=== PATIENT | female | born 1990 | race Caucasian/White ===

== ENCOUNTER 2019-02-24 20:12 | Inpatient (IN) | payer OTHER ==
[~2019-02-24 20:12] MED LIST: Bupivacaine 0.25% HCL 30 ML VIAL ONE
[2019-02-24] MEDS ORDERED: Methylergonovine 0.2 MG/ML VIAL IM PRN (20:37)
[2019-02-24] MEDS ORDERED: Carboprost 250 MCG/ML AMP IM PRN (20:37)
[2019-02-24] MEDS ORDERED: Ondansetron PF 4 MG/2 ML Vial IVP PRN (20:37)
[2019-02-24] MEDS ORDERED: Lidocaine 1% (PF) 30 ML VIAL SC PRN (20:37)
[2019-02-24] MEDS ORDERED: Misoprostol 200 MCG TAB PR PRN (20:37)
[2019-02-24] MEDS ORDERED: hydrALAZINE 20 MG/ML VIAL SLOW IVP PRN (20:37)
[2019-02-24] MEDS ORDERED: Diphenoxylate HCl/Atropine Tablet PO PRN (20:37)
[2019-02-24] MEDS ORDERED: Promethazine HCl 25 MG/ML VIAL IM PRN (20:37)
[2019-02-24] MEDS ORDERED: Ibuprofen 800 MG TAB PO PRN (20:37)
[2019-02-24] MEDS ORDERED: NS / Oxytocin 40 units/1000ml 1,000 ML IV PRN (20:37)
[2019-02-24] MEDS ORDERED: HYDROcodone/Acetaminophen 5/325 mg Tablet PO PRN (20:37)
[2019-02-24] MEDS ORDERED: Acetaminophen 500 MG TAB PO PRN (20:37)
[2019-02-24] MEDS ORDERED: NS w/ Oxytocin 10 units 500 ML IV SCH (20:45)
[2019-02-24] MEDS ORDERED: Misoprostol 100 MCG TAB VAG SCH (21:00)
[2019-02-24] MEDS ORDERED: Penicillin G Potassium 5 MILL.UNITS in Sodium Chloride 0.9% 100 ML IVPB SCH (21:00)
[2019-02-24] MEDS: Lactated Ringer's 1,000 ML IV SCH ×2 (21:00→23:10)
[2019-02-24 21:04] LABS: Mean Corpuscular HGB CONC 32.9 g/dL (32.0-36.0); Mean Corpuscular Hemoglobin 28.3 pg (27.0-31.0); Mean Corpuscular Volume 86.1 fL (78.0-98.0); Mean Platelet Volume 10.2 fL (7.4-10.4); Platelet Count 226 thou/uL (130-400); RBC Distribution Width 12.5 % (11.5-14.5); White Blood Cell (WBC) Count 10.4 thou/uL (4.8-10.8)
[2019-02-24 21:20] LABS: ALT (SGPT) 12 U/L (8-55); AST (SGOT) 26 U/L (5-34); Albumin 3.6 g/dL (3.5-5.0); Alkaline Phosphatase 169 U/L (40-110); Anion Gap 18 mmol/L (10-20); BUN (Urea Nitrogen) 7 mg/dL (7.0-18.7); Bilirubin, Total 0.6 mg/dL (0.2-1.2); Calc. Creatinine Clearance 0 mL/min (70-130); Calcium 8.7 mg/dL (7.8-10.44); Carbon Dioxide 18 mmol/L (22-29); Chloride 106 mmol/L (98-107); Estimated GFR-MDRD Greater than 90; Globulin 2.8 g/dL (2.4-3.5); Glucose 69 mg/dL (70-105); Potassium 3.9 mmol/L (3.5-5.1); Protein, Total 6.4 g/dL (6.0-8.3); Sodium 138 mmol/L (136-145)
[2019-02-24 21:38] LABS: Syphilis Antibody Nonreactive (Nonreactive); Syphilis Antibody Index 0.04 S/CO (<1.00 Non-Reactive)
[2019-02-24] MEDS ORDERED: Fentanyl 4 mcg/Bup 0.1% Cadd 100 ML ONE (21:39)
[2019-02-24] MEDS ORDERED: Fentanyl 100 MCG/2 ML VIAL ONE (21:40)
[2019-02-24 22:16] VITALS: BMI 32.2
[2019-02-24 23:21] LABS: HBSAg Index 0.24 S/CO (0-0.99); Hep B Surf Ag Non-Reactive S/CO (NonReactive)
[2019-02-25] MEDS: Pen G 2.5 MILL.UNITS/50 ML BAG IVPB SCH ×2 (01:08→09:19)
--- NOTE | 2019-02-25 05:41 | PDOC.LDHP ---
Labor and Delivery H&P Chief complaint: scheduled induction HPI: 28yo at 37w2d by LMP here for IOL due to GHTN. No PIH sx. Current gestational age (weeks): 37 Due date: 03/15/19 Dating criteria: last menstrual period Grav: 3 Para: 2 Current complications: none Abnormal US findings: No Past Medical History: mastocytosis Current medications: pre-codie vitamins, other (amitriptyline, valtrex, singulair, gabapentin) Previous surgical history: other (knee scope, knee surgery) Allergies/Adverse Reactions: Allergies Allergy/AdvReac Type Severity Reaction Status Date / Time morphine Allergy Severe Anaphylaxis Verified 03/24/14 22:35 Social history: none - Physical Exam Vital signs reviewed and normal: yes General: NAD Heart: RRR Lungs: CTAB Abdomen: gravid Extremeties: no edema FHT: category 1 Corley contractions every: 2min - Vaginal Exam cm dilated: 10 Effacement: 100% Station: 2+ - OB Labs Blood type: A RH: positive Antibody Screen: negative HIV: negative RPR: negative HEPSAg: negative 1 hour GCT: negative GBS: positive Urine drug screen: negative Rubella: immune - Assessment L&D Assessment: medically indicated induction - Plan Plan: admit to L&D, labor augmentation if indicated, GBS antibiotic prophylaxis , informed consent obtained, anesthesia consult for pain management
--- NOTE | 2019-02-25 05:45 | PDOC.OPDEL ---
OB Operative/Delivery Note Delivery Dr/Surgeon: Hossein Assist: n/a Pre-Delivery Diagnosis: medically indicated induction (GHTN) Procedure/Post Delivery Dx: spontaneous vaginal delivery Weeks gestation: 37 Anesthesia: epidural - Findings A Sex: male - 1 min: 8 - 5 min: 9 - Additional Findings/Plan Placenta delivered: spontaneous Repaired Obstetrical Laceration: none Estimated blood loss: 50cc Compilations/Other Findings: NC x 1 reduced Post delivery plan: routine recovery
[2019-02-25] MEDS ORDERED: Bisacodyl 10 MG SUPP PR PRN (07:01)
[2019-02-25] MEDS ORDERED: Milk Of Magnesia 30 ML UDCUP PO PRN (07:01)
[2019-02-25] MEDS ORDERED: Promethazine HCl 25 MG/ML VIAL IM PRN (07:01)
[2019-02-25] MEDS ORDERED: NS / Oxytocin 40 units/1000ml 1,000 ML IV SCH (07:01)
[2019-02-25] MEDS ORDERED: Lanolin Ointment 7 GM TUBE TOP PRN (07:01)
[2019-02-25] MEDS ORDERED: Preparation H Ointment 28 GM TUBE PR PRN (07:01)
[2019-02-25] MEDS ORDERED: HYDROcodone/Acetaminophen 5/325 mg Tablet PO PRN ×2 (07:01)
[2019-02-25] MEDS ORDERED: Adacel (T-DAP) 0.5 ML SYRINGE IM ONE (07:01)
[2019-02-25] MEDS ORDERED: Ondansetron PF 4 MG/2 ML Vial IVP PRN (07:01)
[2019-02-25] MEDS ORDERED: diphenhydrAMINE 25 MG CAP PO PRN (07:01)
[2019-02-25] MEDS ORDERED: hydrALAZINE 20 MG/ML VIAL SLOW IVP PRN (07:01)
[2019-02-25] MEDS ORDERED: Benzocaine-Menthol 82.5 ML CAN TOP PRN (07:01)
[2019-02-25] MEDS: Ferrous Sulfate 325 MG TAB PO SCH ×2 (09:19→17:14)
[2019-02-25] MEDS: Ibuprofen 800 MG TAB PO SCH ×3 (09:27→22:28)
[2019-02-25] MEDS: Docusate Calcium (SURFAK) 240 MG CAP PO SCH ×2 (09:36→22:28)
[2019-02-25] MEDS: Prenatal Vitamin 1 TAB PO SCH (09:36)
[2019-02-26] MEDS: Ibuprofen 800 MG TAB PO SCH ×2 (06:28→13:24)
[2019-02-26] MEDS: Docusate Calcium (SURFAK) 240 MG CAP PO SCH (09:11)
[2019-02-26] MEDS: Ferrous Sulfate 325 MG TAB PO SCH ×2 (09:13→15:31)
[2019-02-26] MEDS: Prenatal Vitamin 1 TAB PO SCH (09:13)
--- NOTE | 2019-02-26 10:29 | PDOC.PP ---
Post Progress Note Post Day #: 1 PO intake tolerated: yes Flatus: yes Ambulation: yes Vital Signs (12 hours) Temp Pulse Resp BP Pulse Ox 02/26/19 08:13 97.9 F 83 20 125/71 97 02/26/19 04:00 98.0 F 75 129/67 Weight Weight 188 lb - Physical Examination General: NAD Respiratory: non-labored breathing Abdominal: no distention, appropriately TTP Skin: no rash Neurological: no gross focal deficits Psychiatric: normal affect Result Diagrams: 02/24/19 20:51 02/24/19 20:51 Additional Labs: Post Labs Blood Type A POSITIVE 02/24/19 20:51 Hep Bs Antigen Non-Reactive S/CO (NonReactive) 02/24/19 20:51 - Assessment/Plan PPD1 s/p TSVD at 37w 2/2 GHTN VSSAF Doing well lochia < menses Rh pos RImm Cont PP care, home tomorrow
[2019-02-26 17:33] VITALS: BP 135/85; TEMP 98.3
== END 2019-02-26 19:03 | disposition home or self-care (01) | DRG 807 ==
LOC: L&D 20:12 → 3SW 02-25 09:01
PROVIDERS: ADMIT Student in an Organized Health Care Education/Training Program; ATTEND Student in an Organized Health Care Education/Training Program
PROC: 10E0XZZ Delivery of Products of Conception, External Approach (ICD-10-PCS; principal; 2019-02-24)
PROC: 3E033VJ Introduction of Other Hormone into Peripheral Vein, Percutaneous Approach (ICD-10-PCS; 2019-02-24)
DX: O13.4 Gestational [pregnancy-induced] hypertension without significant proteinuria, complicating childbirth (principal); Z37.0 Single live birth; Z3A.37 37 weeks gestation of pregnancy; O99.824 Streptococcus B carrier state complicating childbirth; O69.81X0 Labor and delivery complicated by cord around neck, without compression, not applicable or unspecified
CPT/HCPCS: 36415; 51702; 80053; 81003; 85027; 86780; 86850; 86900; 86901; 87077; 87081; 87340; J2540; J2590; J3010; J3490; S0020

== ENCOUNTER 2019-12-28 14:27 | Outpatient (CLI) | payer OTHER ==
--- NOTE | 2019-12-28 15:21 | MMO ---
Bilateral MAMMO Bilat Diag DDI+SOPHIE. CLINICAL HISTORY: Patient is 29 years old and is seen for diagnostic exam and pain in the right breast. The patient has the following family history of breast cancer: 1aternal grandmother; maternal aunt, GREAT and paternal grandmother, GREAT. The patient has no personal history of cancer. VIEWS: The views performed were: bilateral craniocaudal with tomosynthesis; bilateral mediolateral oblique with tomosynthesis; and bilateral mediolateral with tomosynthesis. FILMS COMPARED: The present examination has been compared to a prior imaging study performed at [facility] on 12/28/2019. This study has been interpreted with the assistance of computer-aided detection. MAMMOGRAM FINDINGS: The breasts are heterogeneously dense, which could obscure a lesion on mammography. There are no suspicious masses, suspicious calcifications, or new areas of architectural distortion. IMPRESSION: THERE IS NO MAMMOGRAPHIC EVIDENCE OF MALIGNANCY. A ROUTINE FOLLOW-UP MAMMOGRAM AT AGE 39 IS RECOMMENDED. THE RESULTS OF THIS EXAM WERE SENT TO THE PATIENT. ACR BI-RADS Category 1 - Negative MAMMOGRAPHY NOTE: 1. A negative mammogram report should not delay a biopsy if a dominant of clinically suspicious mass is present. 2. Approximately 10% to 15% of breast cancers are not detected by mammography. 3. Adenosis and dense breasts may obscure an underlying neoplasm. Reported by: TOMMY OLIVEROS MD Electonically Signed: [id number]
--- NOTE | 2019-12-28 15:25 | ULT ---
Exam: Right breast ultrasound Limited: HISTORY: 29-year-old female presents with right breast pain patient was breast-feeding up to approximately 3 m onths ago FINDINGS: The area of pain in the 8:00 region of the right breast was evaluated. There is no solid or cystic ma ss or other ultrasound abnormality. Mammogram demonstrated no evidence for abnormality. IMPRESSION: BI-RADS code 1 negative. Recommend follow-up mammogram at approximately age 34 depending upon risk.
== END 2019-12-28 14:28 | disposition home or self-care (01) ==
LOC: BICMAMMO 14:27
PROVIDERS: ATTEND Student in an Organized Health Care Education/Training Program
DX: N64.4 Mastodynia (principal)
CPT/HCPCS: 77066; G0279

== ENCOUNTER 2023-07-20 07:21 | Outpatient (CLI) | payer BC ==
[2023-07-20 09:57] LABS: #Basophils 0.05 10x3/uL (0.0-0.2); #Eosinphils 0.11 10x3/uL (0.0-0.5); #Monocytes 0.52 10x3/uL (0.0-1.1); #Neutrophils 6.68 10x3/uL (1.5-8.4); %Basophils 0.5 % (0.0-2.0); %Eosinophils 1.1 % (0.0-6.0); %Lymphocytes 23.7 % (18.0-47.0); %Monocytes 5.4 % (0.0-10.0); Hematocrit 41.7 % (34.9-44.5); Hemoglobin 14.3 g/dL (12.0-15.5); Mean Corpuscular HGB CONC 34.3 g/dL (32.0-36.0); Mean Corpuscular Hemoglobin 29.9 pg (27.0-33.0); Mean Corpuscular Volume 87.2 fL (81.6-98.3); Mean Platelet Volume 10.1 fL (7.4-10.4); Platelet Count 337 10x3/uL (150-450); RBC Distribution Width 12.7 % (11.5-14.5); Red Blood Cell (RBC) Count 4.78 10x6/uL (3.90-5.03); White Blood Cell (WBC) Count 9.7 10x3/uL (3.5-10.5)
[2023-07-20 10:15] LABS: ALT (SGPT) 18 U/L (8-55); AST (SGOT) 23 U/L (5-34); Albumin 4.3 g/dL (3.5-5.0); Alkaline Phosphatase 63 U/L (40-110); Anion Gap 15 mmol/L (10-20); BUN (Urea Nitrogen) 11 mg/dL (7.0-18.7); Bilirubin, Direct 0.2 mg/dL (0.1-0.3); Bilirubin, Total 0.7 mg/dL (0.2-1.2); Calc. Creatinine Clearance 0 mL/min (70-130); Calcium 9.7 mg/dL (7.8-10.44); Carbon Dioxide 27 mmol/L (22-29); Chloride 103 mmol/L (98-107); Estimated GFR 103; Glucose 115 mg/dL (70-105); Potassium 4.2 mmol/L (3.5-5.1); Protein, Total 7.3 g/dL (6.0-8.3); Sodium 141 mmol/L (136-145)
[2023-07-20 10:18] LABS: BHCG - Serum Negative (NEGATIVE); Pregs Control Background? CLEAR/WHITE (CLR/WHITE); Pregs Control Bar Appear? YES (CONTROL BAR)
== END 2023-07-20 07:22 | disposition home or self-care (01) ==
LOC: LABBT 07:21
PROVIDERS: ATTEND Surgery
DX: Z01.812 Encounter for preprocedural laboratory examination (principal); K80.20 Calculus of gallbladder without cholecystitis without obstruction
CPT/HCPCS: 80048; 80076; 84703; 85025

== ENCOUNTER 2023-07-27 06:30 | Day surgery (SDC) | payer BC ==
[2023-07-20 09:36] VITALS: BMI 32.1
[2023-07-27] MEDS ORDERED: Rocuronium Bromide 10 MG/ML (10ML VIAL) ONE (07:01)
[2023-07-27] MEDS ORDERED: Dexamethasone 20 MG/5 ML VIAL ONE (07:01)
[2023-07-27] MEDS ORDERED: Ketorolac Tromethamine 30 MG (1 mL) VIAL ONE (07:01)
[2023-07-27] MEDS ORDERED: Ondansetron PF 4 MG/2 ML Vial ONE (07:01)
[2023-07-27] MEDS ORDERED: PROPOFOL 200 MG/20 ML VIAL ONE (07:01)
[2023-07-27] MEDS ORDERED: Lidocaine 1% PF 5 ML VIAL ONE (07:01)
== END 2023-07-27 10:45 | disposition home or self-care (01) ==
LOC: SDC 06:30
PROVIDERS: ATTEND Surgery
PROC: 0FT44ZZ Resection of Gallbladder, Percutaneous Endoscopic Approach (ICD-10-PCS; principal; 2023-07-27)
DX: K80.10 Calculus of gallbladder with chronic cholecystitis without obstruction (principal); Z88.5 Allergy status to narcotic agent; Z79.899 Other long term (current) drug therapy
CPT/HCPCS: 88304; C1889; J1100; J1885; J2405; J2704

== ENCOUNTER 2023-08-06 09:43 | Observation (INO) | payer BC ==
[~2023-08-06 09:43] MED LIST changes: -Bupivacaine 0.25% HCL 30 ML VIAL ONE; +CEFAZOLIN 2 GM VIAL ONE; +Midazolam HCl 2 mg/2 ml Vial ONE; +Promethazine HCl 25 MG/ML VIAL ONE; +Sodium Chloride 0.9% 100 ML ONE
[2023-08-06 10:26] LABS: #Basophils 0.04 10x3/uL (0.0-0.2); %Basophils 0.7 % (0.0-1.0); %Eosinophils 3.2 % (0.0-10.0); %Lymphocytes 17.9 % (21.0-51.0); %Monocytes 8.3 % (0.0-10.0); %Neutrophils 69.6 % (42.0-75.0); Hematocrit 40.1 % (36.0-47.0); Hemoglobin 13.7 g/dL (12.0-16.0); Mean Corpuscular HGB CONC 34.2 g/dL (32.0-36.0); Mean Corpuscular Hemoglobin 29.8 pg (27.0-31.0); Mean Corpuscular Volume 87.4 fL (78.0-98.0); Mean Platelet Volume 10.2 fL (7.4-10.4); Platelet Count 270 10x3/uL (130-400); RBC Distribution Width 12.8 % (11.5-14.5); Red Blood Cell (RBC) Count 4.59 mill/uL (4.20-5.40)
[2023-08-06 10:32] LABS: Bacteria/HPF Rare-Few HPF (None Seen); Bilirubin Negative (Negative); Blood, Urine Negative (Negative); CAUTI Indications for Culture Pelvic or flank pain; Clarity Clear (Clear); Glucose, Urine (Dipstick) Normal (Negative); Ketone, Urine Negative (Negative); Leukocyte Negative Leu/uL (Negative); Nitrite Negative (Negative); Protein, Urine (Dipstick) Negative (Neg-Trace); RBC/HPF 0-3 HPF (0-3); Specific Gravity, Urine 1.004 (1.002-1.036); Squamous Epithelial 0-3 HPF (0-3); Urobilinogen Normal mg/dL (Less than 2); WBC/HPF 0-3 HPF (0-3)
[2023-08-06 10:33] LABS: Urine Culture Reflex No No
[2023-08-06 10:44] LABS: ALT (SGPT) 542 U/L (8-55); AST (SGOT) 257 U/L (5-34); Albumin 3.9 g/dL (3.5-5.0); Alkaline Phosphatase 171 U/L (40-110); Anion Gap 16 mmol/L (10-20); BUN (Urea Nitrogen) 8 mg/dL (7.0-18.7); Bilirubin, Total 5.3 mg/dL (0.2-1.2); Calc. Creatinine Clearance 0 mL/min (70-130); Calcium 9.6 mg/dL (7.8-10.44); Carbon Dioxide 23 mmol/L (22-29); Chloride 105 mmol/L (98-107); Estimated GFR 101; Globulin 3.6 g/dL (2.4-3.5); Glucose 94 mg/dL (70-105); Lipase 54 U/L (8-78); Potassium 4.2 mmol/L (3.5-5.1); Protein, Total 7.5 g/dL (6.0-8.3)
[2023-08-06 11:05] LABS: Sodium 140 mmol/L (136-145)
[2023-08-06 11:28] LABS: Troponin I Less than 0.010 ng/mL (< 0.028)
[2023-08-06] MEDS ORDERED: Iopamidol-370 76% 500 ML MDV (1 ML CHARGE) ONE (12:35)
[2023-08-06 14:09] LABS: Lactic Acid 0.5 mmol/L (0.5-2.2)
[2023-08-06 14:44] VITALS: BMI 32.1
[2023-08-06] MEDS ORDERED: hydrALAZINE 20 MG/ML VIAL SLOW IVP PRN (16:42)
[2023-08-06] MEDS ORDERED: Mag-Al 1200 mg/1200 mg/30 ML UDCUP PO PRN (16:42)
[2023-08-06] MEDS ORDERED: Calcium Carbonate 500 MG ChewTAB PO PRN (16:42)
[2023-08-06] MEDS ORDERED: Ipratropium/Albuterol 3 ML NEB NEB PRN (16:42)
[2023-08-06] MEDS ORDERED: Dextrose 50% Abboject 50 ML SYRINGE SLOW IVP PRN (16:42)
[2023-08-06] MEDS ORDERED: Glucagon 1 MG/ML KIT IM PRN (16:42)
[2023-08-06] MEDS ORDERED: Dextrose 5% in Water 1,000 ML IV PRN (16:42)
[2023-08-06] MEDS ORDERED: Promethazine HCl 25 MG/ML VIAL IM PRN (16:42)
[2023-08-06] MEDS ORDERED: Piperacillin/Tazobactam 3.375 GM in Sodium Chloride 0.9% 100 ML IVPB SCH (17:15)
[2023-08-06] MEDS: D5 1/2 NS w/20 mEq KCL 1,000 ML IV SCH (17:40)
[2023-08-06] MEDS: Ketorolac Tromethamine 30 MG (1 mL) VIAL IVP SCH (17:40)
[2023-08-06] MEDS: Piperacillin/Tazobactam 3.375 GM in Sodium Chloride 0.9% 100 ML IVPB SCH ×2 (17:40→20:49)
[2023-08-06] MEDS: Ondansetron PF 4 MG/2 ML Vial IVP PRN (17:52)
[2023-08-06] MEDS: Famotidine/PF 20 mg/2ml Vial SLOW IVP SCH (20:45)
[2023-08-06] MEDS: fentaNYL 50 mcg/mL 1 mL Vial SLOW IVP PRN (20:45)
[2023-08-06] MEDS: Famotidine 20 MG TAB PO SCH (23:37)
[2023-08-07] MEDS ORDERED: Famotidine/PF 20 mg/2ml Vial ONE (07:27)
[2023-08-07] MEDS ORDERED: Indomethacin 50 MG SUPP ONE (07:45)
[2023-08-07] MEDS ORDERED: Iopamidol 45 ML ONE (07:47)
[2023-08-07] MEDS ORDERED: Midazolam HCl 2 mg/2 ml Vial ONE (08:05)
[2023-08-07] MEDS ORDERED: Rocuronium Bromide 10 MG/ML (10ML VIAL) ONE (08:07)
[2023-08-07] MEDS ORDERED: Lidocaine 2% PF 5 ML VIAL ONE (08:07)
[2023-08-07] MEDS ORDERED: PROPOFOL 20 ML ONE (08:07)
[2023-08-07] MEDS ORDERED: fentaNYL PF 100 MCG/2 ML SYRINGE ONE (08:07)
[2023-08-07] MEDS ORDERED: Ondansetron PF 4 MG/2 ML Vial ONE (08:10)
[2023-08-07] MEDS ORDERED: Ketorolac Tromethamine 30 MG (1 mL) VIAL ONE (08:10)
[2023-08-07] MEDS ORDERED: Dexamethasone 20 MG/5 ML VIAL ONE (08:10)
[2023-08-07] MEDS ORDERED: SUGAMMADEX SODIUM 200 MG/2 ML VIAL ONE (08:15)
[2023-08-07 08:32] LABS: #Basophils 0.06 10x3/uL (0.0-0.2); %Basophils 0.8 % (0.0-1.0); %Eosinophils 2.2 % (0.0-10.0); %Lymphocytes 14.3 % (21.0-51.0); %Monocytes 8.2 % (0.0-10.0); %Neutrophils 74.1 % (42.0-75.0); Hematocrit 39.5 % (36.0-47.0); Hemoglobin 13.6 g/dL (12.0-16.0); Mean Corpuscular HGB CONC 34.4 g/dL (32.0-36.0); Mean Corpuscular Hemoglobin 30.2 pg (27.0-31.0); Mean Corpuscular Volume 87.6 fL (78.0-98.0); Mean Platelet Volume 10.3 fL (7.4-10.4); Platelet Count 267 10x3/uL (130-400); RBC Distribution Width 13.1 % (11.5-14.5); Red Blood Cell (RBC) Count 4.51 mill/uL (4.20-5.40)
[2023-08-07 09:02] LABS: Lipase 2532 U/L (8-78)
[2023-08-07 09:11] LABS: ALT (SGPT) 396 U/L (8-55); AST (SGOT) 138 U/L (5-34); Albumin 3.8 g/dL (3.5-5.0); Alkaline Phosphatase 159 U/L (40-110); Anion Gap 15 mmol/L (10-20); BUN (Urea Nitrogen) 5 mg/dL (7.0-18.7); Bilirubin, Total 6.3 mg/dL (0.2-1.2); Calc. Creatinine Clearance 145 mL/min (70-130); Calcium 9.2 mg/dL (7.8-10.44); Carbon Dioxide 23 mmol/L (22-29); Chloride 109 mmol/L (98-107); Estimated GFR 109; Globulin 3.3 g/dL (2.4-3.5); Glucose 96 mg/dL (70-105); Potassium 3.6 mmol/L (3.5-5.1); Protein, Total 7.1 g/dL (6.0-8.3); Sodium 143 mmol/L (136-145)
[2023-08-08 07:51] VITALS: BP 144/89; TEMP 98.1
[2023-08-08 11:11] LABS: ALT (SGPT) 267 U/L (8-55); AST (SGOT) 64 U/L (5-34); Albumin 3.3 g/dL (3.5-5.0); Alkaline Phosphatase 136 U/L (40-110); Anion Gap 14 mmol/L (10-20); BUN (Urea Nitrogen) 9 mg/dL (7.0-18.7); Bilirubin, Total 1.9 mg/dL (0.2-1.2); Calc. Creatinine Clearance 136 mL/min (70-130); Calcium 8.9 mg/dL (7.8-10.44); Carbon Dioxide 21 mmol/L (22-29); Chloride 108 mmol/L (98-107); Estimated GFR 101; Globulin 3.1 g/dL (2.4-3.5); Glucose 115 mg/dL (70-105); Potassium 3.9 mmol/L (3.5-5.1); Protein, Total 6.4 g/dL (6.0-8.3); Sodium 139 mmol/L (136-145)
== END 2023-08-08 12:40 | disposition home or self-care (01) ==
LOC: ERS 09:43 → SURG B 14:38
PROVIDERS: ADMIT Surgery; ATTEND Surgery
PROC: 0F798ZZ Dilation of Common Bile Duct, Via Natural or Artificial Opening Endoscopic (ICD-10-PCS; principal; 2023-08-08)
DX: K80.50 Calculus of bile duct without cholangitis or cholecystitis without obstruction (principal); K85.10 Biliary acute pancreatitis without necrosis or infection; K57.10 Diverticulosis of small intestine without perforation or abscess without bleeding; Z90.49 Acquired absence of other specified parts of digestive tract; Z88.5 Allergy status to narcotic agent; Z79.899 Other long term (current) drug therapy
CPT/HCPCS: 36415; 36416; 71045; 74177; 74330; 80053; 81001; 83605; 83690; 83735; 83880; 84484; 85025; 85379; 93005; 94760; 96365; 96366; 96375; 96376; G0378; J1100; J1885; J2001; J2250; J2405; J2543; J2704; J3010; J3480; J3490; Q9967; S0028